=== PATIENT | male | born 1955 | race Caucasian/White ===

== ENCOUNTER 2023-11-02 14:24 | Inpatient (IN) ==
[2023-11-02 16:19] LABS: ABS Lymphocytes 0.7 10^3/uL (1.0-4.8); ABS Monocytes 0.9 10^3/uL (0.0-1.1); ABS Neutrophils 19.9 10^3/uL (1.5-7.6); ABS Nucleated RBC 0.03 10^3/ul; Hematocrit 41.6 % (38-53); Hemoglobin 13.8 g/dL (13.2-16.3); Lymphocyte % 3.2 %; Mean Corpuscular Hemoglobin 27.7 pg (27-33); Mean Corpuscular Hgb Conc 33.1 g/dL (31-36); Mean Corpuscular Volume 83.7 fL (80-97); Nucleated Red Blood Cells % 0.1 %/100WBC (0.0-0.8); Platelet Count 377 10^3/uL (150-450); Red Blood Count 4.98 10^6/uL (4.06-5.63); Red Cell Distribution Width 16.6 % (12-17); White Blood Count 21.5 10^3/uL (3.6-10.2)
[2023-11-02] MEDS: Lactated Ringers 1000 ml BAG 1,000 ML IV ONE (16:24)
[2023-11-02 16:30] LABS: INR 1.67 (0.83-1.13)
[2023-11-02 16:45] LABS: Albumin 4.4 g/dL (3.2-5.2); Albumin/Globulin Ratio 1.2 (1-3); C Reactive Protein 17.81 mg/L (<8.01); Calcium 9.6 mg/dL (8.6-10.3); Creatinine, Serum 1.9 mg/dL (0.67-1.17); Globulin 3.8 g/dL (2-4); Magnesium 2.3 mg/dL (1.9-2.7); Potassium 4.8 mmol/L (3.5-5.0); Total Bilirubin 0.9 mg/dL (0.2-1.0); Total Protein 8.2 g/dL (6.4-8.9); eGFR CKD-EPI 38.2 (>60)
[2023-11-02] MEDS: Pantoprazole VIAL 40 MG VIAL IV ONE (16:45)
[2023-11-02 17:24] LABS: High Sensitivity Troponin 1 Hr 9 pg/mL (<20)
[2023-11-02] MEDS: Iodixanol (CONTRAST) 320 MG/ML 100 ML SDV IV ONE (18:11)
[2023-11-02] MEDS ORDERED: Senna TAB 8.6 mg TAB PO PRN (20:00)
[2023-11-02] MEDS ORDERED: Polyethylene Glycol 3350 17 GM PACKET PO PRN (20:00)
[2023-11-02] MEDS ORDERED: Ondansetron 4 mg VIAL 2 MG/ML 2 ml VIAL IV PRN (20:00)
[2023-11-02 20:03] LABS: Urine Appearance Clear; Urine Bacteria Absent /HPF (Absent); Urine Bilirubin Negative (Negative); Urine Blood Trace (Negative); Urine Color Yellow; Urine Glucose 4+ (>=1000 mg/dL) (Negative); Urine Ketones Negative (Negative); Urine Nitrite Negative (Negative); Urine Protein 1+ (>=30 mg/dL) (Negative); Urine Red Blood Cell 1+(3-5/hpf) /HPF (0-Trace); Urine Specific Gravity >1.050 (1.002-1.030); Urine Squamous Epithelial Cell Present /HPF (Absent); Urine Urobilinogen Negative (Negative); Urine White Blood Cell Trace(0-5/hpf) /HPF (0-Trace)
[2023-11-02] MEDS ORDERED: Morphine 2 MG/ML SYRINGE IV PRN (20:42)
[2023-11-02] MEDS: Lactated Ringers 1000 ml BAG 1,000 ML IV SCH (23:27)
[2023-11-02] MEDS ORDERED: Metoprolol Tartrate 5 mg VIAL 5 ml VIAL (1 mg/ml) IV PRN (23:57)
[2023-11-02] MEDS: Metoprolol Tartrate 5 mg VIAL 5 ml VIAL (1 mg/ml) IV ONE (23:58)
[2023-11-03 05:50] LABS: Hematocrit 39.5 % (38-53); Hemoglobin 12.5 g/dL (13.2-16.3); Mean Corpuscular Hgb Conc 31.5 g/dL (31-36); Mean Corpuscular Volume 85.7 fL (80-97); Mean Platelet Volume 9.4 fL (7.5-11.2); Platelet Count 350 10^3/uL (150-450); Red Blood Count 4.61 10^6/uL (4.06-5.63); Red Cell Distribution Width 16.9 % (12-17); White Blood Count 17.7 10^3/uL (3.6-10.2)
[2023-11-03 06:52] LABS: ABS Lymphocytes 0.8 10^3/uL (1.0-4.8); ABS Monocytes 1.9 10^3/uL (0.0-1.1); ABS Nucleated RBC 0.01 10^3/ul; Lymphocyte % 4.4 %; Nucleated Red Blood Cells % 0.1 %/100WBC (0.0-0.8)
[2023-11-03 06:55] LABS: Calcium 9.4 mg/dL (8.6-10.3); Creatinine, Serum 2.06 mg/dL (0.67-1.17); Magnesium 2.2 mg/dL (1.9-2.7); eGFR CKD-EPI 34.7 (>60)
[2023-11-03] MEDS ORDERED: Lactated Ringers 1000 ml BAG 1,000 ML IV SCH (10:00)
[2023-11-03 10:17] LABS: Phosphorus 4.7 mg/dL (2.5-5.0)
[2023-11-03] MEDS: Metoprolol Tartrate 5 mg VIAL 5 ml VIAL (1 mg/ml) IV SCH ×2 (10:43→17:27)
[2023-11-03] MEDS: Famotidine IV 10 MG/ML 2 ml VIAL (20 mg) IV SLOW PU SCH ×2 (11:14→11:32)
[2023-11-03] MEDS: D5LR 1000 ml BAG 1,000 ML IV SCH ×2 (11:14→22:09)
[2023-11-03] MEDS: Heparin 5000 UNITS/ML 1 mL VIAL SUBCUT SCH (13:40)
[2023-11-03 15:46] LABS: Carcinoembryonic Antigen 7.7 ng/mL (0.1-5.0)
[2023-11-04] MEDS: Metoprolol Tartrate 5 mg VIAL 5 ml VIAL (1 mg/ml) IV SCH (02:27)
[2023-11-04 06:24] LABS: Hematocrit 34.9 % (38-53); Hemoglobin 11.6 g/dL (13.2-16.3); Mean Corpuscular Hemoglobin 27.7 pg (27-33); Mean Corpuscular Hgb Conc 33.1 g/dL (31-36); Mean Corpuscular Volume 83.7 fL (80-97); Mean Platelet Volume 9.4 fL (7.5-11.2); Platelet Count 276 10^3/uL (150-450); Red Blood Count 4.17 10^6/uL (4.06-5.63); Red Cell Distribution Width 16.8 % (12-17); White Blood Count 5.7 10^3/uL (3.6-10.2)
[2023-11-04 06:30] LABS: INR 1.52 (0.83-1.13)
[2023-11-04 06:51] LABS: Calcium 8.6 mg/dL (8.6-10.3); Creatinine, Serum 1.99 mg/dL (0.67-1.17); Potassium 4.2 mmol/L (3.5-5.0); eGFR CKD-EPI 36.1 (>60)
[2023-11-04 08:28] LABS: ABS Eosinophils 0.1 10^3/uL (0.0-0.5); ABS Lymphocytes 0.7 10^3/uL (1.0-4.8); ABS Monocytes 1.2 10^3/uL (0.0-1.1); ABS Neutrophils 3.7 10^3/uL (1.5-7.6); Eosinophil % 1.4 %; Lymphocyte % 12.1 %
[2023-11-04] MEDS ORDERED: Lidocaine 2% PF 5 ML VIAL ONE (08:37)
[2023-11-04] MEDS ORDERED: Propofol 10 MG/ML 20 ML BTL ONE (08:37)
[2023-11-04] MEDS ORDERED: Rocuronium 50 mg VIAL 10 mg/ml 5 ml VIAL (50 mg) ONE ×3 (08:37→12:56)
[2023-11-04] MEDS ORDERED: fentaNYL 100 mcg/2 ml 50 MCG/ML VIAL ONE ×3 (08:37→14:53)
[2023-11-04] MEDS ORDERED: Dexamethasone IV 4 MG/ML VIAL 1 ml VIAL ONE (08:37)
[2023-11-04] MEDS ORDERED: Ondansetron 4 mg VIAL 2 MG/ML 2 ml VIAL ONE (08:37)
[2023-11-04] MEDS ORDERED: Midazolam 2 mg/2 ml VIAL 1 mg/ml 2 ml VIAL (2 mg) ONE (08:37)
[2023-11-04] MEDS ORDERED: Bupivacaine 0.25% w/EPI 10 ML SDV ONE (09:30)
[2023-11-04] MEDS ORDERED: Phenylephrine IV 10 MG/ML 1 ml VIAL ONE (10:24)
[2023-11-04] MEDS ORDERED: HYDROmorphone 0.5 MG/0.5 ML SYRINGE ONE (11:05)
[2023-11-04] MEDS: fentaNYL 100 mcg/2 ml 50 MCG/ML VIAL IV PRN (15:00)
[2023-11-04] MEDS ORDERED: Morphine 4 MG/ML VIAL (1 ml) IV PRN (15:06)
[2023-11-04] MEDS ORDERED: Naloxone 0.4 mg VIAL 0.4 mg/ml 1 ml VIAL IV PRN (15:06)
[2023-11-04] MEDS: Ertapenem 1 GM in NS 0.9% 50 ML IVPB ONE (16:11)
[2023-11-04] MEDS: D5LR 1000 ml BAG 1,000 ML IV SCH (16:25)
[2023-11-04] MEDS: Acetaminophen IV 1 GM/100ML 1,000 MG/100 ML BAG IV PRN (16:25)
[2023-11-04] MEDS: Morphine 2 MG/ML SYRINGE IV PRN (18:05)
[2023-11-05] MEDS: D5LR 1000 ml BAG 1,000 ML IV SCH ×2 (06:06→10:34)
[2023-11-05 06:36] LABS: ABS Lymphocytes 0.8 10^3/uL (1.0-4.8); ABS Monocytes 1.3 10^3/uL (0.0-1.1); ABS Neutrophils 7.2 10^3/uL (1.5-7.6); ABS Nucleated RBC 0.01 10^3/ul; Hematocrit 36.2 % (38-53); Hemoglobin 11.8 g/dL (13.2-16.3); Lymphocyte % 8.8 %; Mean Corpuscular Hemoglobin 27.7 pg (27-33); Mean Corpuscular Hgb Conc 32.7 g/dL (31-36); Mean Corpuscular Volume 84.7 fL (80-97); Mean Platelet Volume 9.7 fL (7.5-11.2); Nucleated Red Blood Cells % 0.1 %/100WBC (0.0-0.8); Platelet Count 277 10^3/uL (150-450); Red Blood Count 4.27 10^6/uL (4.06-5.63); Red Cell Distribution Width 16.6 % (12-17); White Blood Count 9.3 10^3/uL (3.6-10.2)
[2023-11-05 06:54] LABS: Calcium 7.5 mg/dL (8.6-10.3); Creatinine, Serum 3.43 mg/dL (0.67-1.17); Potassium 4.2 mmol/L (3.5-5.0); eGFR CKD-EPI 18.8 (>60)
[2023-11-05] MEDS: NS 0.9% 500 ml BAG 500 ML IV ONE (09:29)
[2023-11-05] MEDS: Enoxaparin 30 MG/0.3 ML SYR SUBCUT SCH (13:07)
[2023-11-06 05:36] LABS: ABS Eosinophils 0.1 10^3/uL (0.0-0.5); ABS Monocytes 1.3 10^3/uL (0.0-1.1); ABS Neutrophils 9.4 10^3/uL (1.5-7.6); Eosinophil % 0.7 %; Hematocrit 33.7 % (38-53); Hemoglobin 10.9 g/dL (13.2-16.3); Lymphocyte % 8.5 %; Mean Corpuscular Hemoglobin 27.1 pg (27-33); Mean Corpuscular Hgb Conc 32.3 g/dL (31-36); Mean Corpuscular Volume 83.9 fL (80-97); Mean Platelet Volume 9.1 fL (7.5-11.2); Platelet Count 237 10^3/uL (150-450); Red Blood Count 4.01 10^6/uL (4.06-5.63); Red Cell Distribution Width 16.8 % (12-17); White Blood Count 11.8 10^3/uL (3.6-10.2)
[2023-11-06 06:16] LABS: Calcium 7.6 mg/dL (8.6-10.3); Creatinine, Serum 2.51 mg/dL (0.67-1.17); Magnesium 2.2 mg/dL (1.9-2.7); Phosphorus 2.8 mg/dL (2.5-5.0); eGFR CKD-EPI 27.3 (>60)
[2023-11-06] MEDS: D5LR 1000 ml BAG 1,000 ML IV SCH (09:19)
[2023-11-06] MEDS: D5W 1/2 NS 1000 ml BAG 1,000 ML IV SCH (17:49)
[2023-11-07 06:27] LABS: ABS Eosinophils 0.3 10^3/uL (0.0-0.5); ABS Lymphocytes 1.2 10^3/uL (1.0-4.8); ABS Monocytes 1.1 10^3/uL (0.0-1.1); ABS Neutrophils 9.3 10^3/uL (1.5-7.6); ABS Nucleated RBC 0.01 10^3/ul; Eosinophil % 2.6 %; Hematocrit 35.1 % (38-53); Hemoglobin 11.2 g/dL (13.2-16.3); Lymphocyte % 9.7 %; Mean Corpuscular Hemoglobin 26.9 pg (27-33); Mean Corpuscular Hgb Conc 31.8 g/dL (31-36); Mean Corpuscular Volume 84.4 fL (80-97); Mean Platelet Volume 9.1 fL (7.5-11.2); Platelet Count 261 10^3/uL (150-450); Red Blood Count 4.16 10^6/uL (4.06-5.63); Red Cell Distribution Width 16.9 % (12-17)
[2023-11-07 06:58] LABS: Calcium 8.1 mg/dL (8.6-10.3); Creatinine, Serum 1.89 mg/dL (0.67-1.17); eGFR CKD-EPI 38.4 (>60)
[2023-11-07] MEDS ORDERED: Metoprolol Tartrate 5 mg VIAL 5 ml VIAL (1 mg/ml) IV PRN (10:28)
[2023-11-07] MEDS: D5W 1/2 NS 1000 ml BAG 1,000 ML IV SCH ×2 (12:25→14:49)
[2023-11-08 06:03] LABS: Hematocrit 32.5 % (38-53); Hemoglobin 10.6 g/dL (13.2-16.3); Mean Corpuscular Hemoglobin 27.4 pg (27-33); Mean Corpuscular Hgb Conc 32.7 g/dL (31-36); Mean Platelet Volume 9.5 fL (7.5-11.2); Platelet Count 230 10^3/uL (150-450); Red Blood Count 3.87 10^6/uL (4.06-5.63); Red Cell Distribution Width 16.4 % (12-17); White Blood Count 9.6 10^3/uL (3.6-10.2)
[2023-11-08 06:29] LABS: Calcium 7.7 mg/dL (8.6-10.3); Creatinine, Serum 1.78 mg/dL (0.67-1.17); Potassium 3.5 mmol/L (3.5-5.0); eGFR CKD-EPI 41.3 (>60)
[2023-11-08] MEDS: KCL 20 MEQ/100 ML IVPREMIX 20 MEQ/100 ML BAG IV ONE (08:54)
[2023-11-08] MEDS: D5W 1/2 NS 1000 ml BAG 1,000 ML IV SCH (09:39)
[2023-11-09 06:40] LABS: Hemoglobin 10.4 g/dL (13.2-16.3); Mean Corpuscular Hemoglobin 27.4 pg (27-33); Mean Corpuscular Hgb Conc 32.6 g/dL (31-36); Mean Platelet Volume 9.6 fL (7.5-11.2); Platelet Count 233 10^3/uL (150-450); Red Blood Count 3.81 10^6/uL (4.06-5.63); Red Cell Distribution Width 16.3 % (12-17)
[2023-11-09 08:00] LABS: Calcium 7.7 mg/dL (8.6-10.3); Creatinine, Serum 1.76 mg/dL (0.67-1.17); Magnesium 1.8 mg/dL (1.9-2.7); Potassium 4.2 mmol/L (3.5-5.0); eGFR CKD-EPI 41.9 (>60)
[2023-11-09 09:57] VITALS: BP 116/84
== END 2023-11-09 12:50 | disposition home or self-care (01) | DRG 330 ==
LOC: ED 14:24 → EDHOLD 20:00 → MED 21:38 → SSU 11-04 14:18
PROVIDERS: ADMIT Student in an Organized Health Care Education/Training Program; ATTEND Student in an Organized Health Care Education/Training Program